=== PATIENT | female | born 1955 | race Two or more races ===

== ENCOUNTER 2017-06-10 13:02 | Outpatient (CLI) | payer OTHER | END 2017-06-10 13:13 | disposition home or self-care (01) | LOC: LAB 13:02 | DX: N39.0 Urinary tract infection, site not specified (principal); D64.89 Other specified anemias ==

== ENCOUNTER → 2017-06-10 13:37 | Outpatient (CLI) | payer OTHER | END | disposition home or self-care (01) | LOC: SONOGRAMA 13:37 | DX: R10.30 Lower abdominal pain, unspecified (principal); R10.13 Epigastric pain ==

== ENCOUNTER 2017-10-16 10:51 | Outpatient (CLI) | payer OTHER | END 2017-10-16 10:58 | disposition home or self-care (01) | LOC: RAD 10:51 | DX: D86.0 Sarcoidosis of lung (principal); D86.2 Sarcoidosis of lung with sarcoidosis of lymph nodes; R06.02 Shortness of breath ==

== ENCOUNTER 2017-10-22 09:49 | Outpatient (CLI) | payer OTHER | END 2017-10-22 10:13 | disposition home or self-care (01) | LOC: LAB 09:49 | DX: D86.0 Sarcoidosis of lung (principal); R50.9 Fever, unspecified; R06.09 Other forms of dyspnea ==

== ENCOUNTER 2017-11-07 11:32 | Outpatient (CLI) | payer OTHER ==
[~2017-11-07] VITALS: Ht 167.6 cm; Wt 52.2 kg
== END 2017-11-07 11:50 | disposition home or self-care (01) ==
LOC: OFIC 805 11:32
DX: J32.8 Other chronic sinusitis (principal); J30.89 Other allergic rhinitis; K21.9 Gastro-esophageal reflux disease without esophagitis

== ENCOUNTER 2017-11-21 14:12 | Outpatient (CLI) | payer OTHER | END 2017-11-21 14:14 | disposition home or self-care (01) | LOC: TOM 14:12 | DX: J32.4 Chronic pansinusitis (principal) ==

== ENCOUNTER 2018-04-12 13:33 | Outpatient (CLI) | payer OTHER ==
[~2018-04-12] VITALS: Ht 152.4 cm; Wt 52.2 kg
== END 2018-04-12 13:45 | disposition home or self-care (01) ==
LOC: OFIC 805 13:33
DX: J39.2 Other diseases of pharynx (principal); K21.9 Gastro-esophageal reflux disease without esophagitis; J30.89 Other allergic rhinitis; H92.03 Otalgia, bilateral

== ENCOUNTER 2018-06-13 09:49 | Outpatient (CLI) | payer OTHER | END 2018-06-13 12:30 | disposition home or self-care (01) | LOC: NUCLEAR 09:49 | DX: I87.2 Venous insufficiency (chronic) (peripheral) (principal) ==

== ENCOUNTER 2018-07-05 13:58 | Outpatient (CLI) | payer OTHER | END 2018-07-05 14:08 | disposition home or self-care (01) | LOC: RAD 13:58 | DX: R05 Cough (principal) ==

== ENCOUNTER 2019-01-11 12:05 | Outpatient (CLI) | payer OTHER ==
[~2019-01-11] VITALS: Ht 152.4 cm; Wt 50.8 kg
== END 2019-01-11 12:25 | disposition home or self-care (01) ==
LOC: OFIC 805 12:05
DX: H69.01 Patulous Eustachian tube, right ear (principal); H69.81 Other specified disorders of Eustachian tube, right ear; H61.23 Impacted cerumen, bilateral; J32.8 Other chronic sinusitis; J31.0 Chronic rhinitis

== ENCOUNTER 2019-02-27 14:15 | Outpatient (CLI) | payer OTHER | END 2019-02-27 14:24 | disposition home or self-care (01) | LOC: RAD 14:15 | DX: Z01.89 Encounter for other specified special examinations (principal) ==

== ENCOUNTER 2021-02-08 09:43 | Outpatient (CLI) | payer OTHER | END 2021-02-08 09:55 | disposition home or self-care (01) | LOC: LAB 09:43 | DX: Z20.828 Contact with and (suspected) exposure to other viral communicable diseases (principal); Z11.52 Encounter for screening for COVID-19 ==

== ENCOUNTER 2023-09-20 08:40 | Outpatient (CLI) | payer OTHER ==
[~2023-09-20 08:40] MED LIST: METAXALONE800 MG PO; VOLTAREN ARTHRI20 GM TOP
== END 2023-09-20 08:51 | disposition home or self-care (01) ==
LOC: RAD 08:40
PROVIDERS: ATTEND Physical Medicine & Rehabilitation
DX: M25.562 Pain in left knee (principal); M25.561 Pain in right knee

== ENCOUNTER → 2024-08-15 | Emergency (ER) | payer OTHER ==
[~2024-08-15] VITALS: Ht 167.6 cm; Wt 52.2 kg
[~2024-08-15] MED LIST changes: +AMLODIPINE-OLM1 EAC2 PO; +CARVEDILOL3.125 MG; +DULOXETINE HCL20 MG PO
== END | disposition left against medical advice (07) ==
LOC: ER 22:41
DX: Z53.21 Procedure and treatment not carried out due to patient leaving prior to being seen by health care provider (principal)

== ENCOUNTER 2025-03-27 10:02 | Outpatient (CLI) | payer OTHER | END 2025-03-27 10:10 | disposition home or self-care (01) | LOC: SONOGRAMA 10:02 → TOM 10:02 → SONOGRAMA 10:10 | PROVIDERS: ATTEND Internal Medicine Gastroenterology | DX: D86.0 Sarcoidosis of lung (principal); R10.9 Unspecified abdominal pain ==